=== PATIENT | female | born 1985 | race Caucasian/White ===

== ENCOUNTER 2016-12-07 08:41 | Day surgery (SDC) | payer BC ==
[2016-12-05 09:34] VITALS: BMI 31.1
[2016-12-07] MEDS ORDERED: Propofol 10 mg/ml Inj (20 ML) ONE (09:45)
[2016-12-07] MEDS ORDERED: Lactated Ringer's 1,000 ML IV SCH (10:24)
[2016-12-07 10:41] VITALS: O2SAT 100
[2016-12-07 12:47] VITALS: BP 105/67; PULSE 57; RESP 16; TEMP 97.7
[2016-12-12 14:07] LABS: ENDOMYSIAL AB TITER 1:40 titer (<1:10)
== END 2016-12-07 11:45 | disposition home or self-care (01) ==
LOC: ENDO 08:41 → MERGE 08:41 → ENDO 11:45
PROVIDERS: ATTEND Internal Medicine Gastroenterology
DX: R10.9 Unspecified abdominal pain (principal); D12.3 Benign neoplasm of transverse colon; K64.8 Other hemorrhoids
CPT/HCPCS: 45380; 82784; 83516; 84703; 88305; J2704; J3010; J7040; J7120